=== PATIENT | male | born 1990 | race Caucasian/White ===

== ENCOUNTER 2023-05-10 00:01 | Emergency (ER) | payer MEDICAID, OTHER ==
[~2023-05-10] VITALS: Ht 175.3 cm; Wt 86.2 kg
[2023-05-10 00:26] VITALS: BP 101/64; PULSE 94; RESP 18; TEMP 98.3; O2SAT 99
[2023-05-10] MEDS ORDERED: KETOROLAC 30 MG/ML VIAL IM ONE (01:20)
--- NOTE | 2023-05-10 01:24 | NUR ---
PT TAKEN TO ER CHAIR
[2023-05-10] MEDS ORDERED: LID5T TP (01:44)
[2023-05-10] MEDS ORDERED: IBUP-2213 PO (01:55)
[2023-05-10] MEDS ORDERED: ONDA-188 SL (01:55)
[2023-05-10] MEDS ORDERED: PRED20TA5 PO (01:55)
[2023-05-10] MEDS ORDERED: SUD30 PO (01:55)
[2023-05-10 02:12] VITALS: BP 101/64; PULSE 94; RESP 18; TEMP 98.3; O2SAT 99
--- NOTE | 2023-05-10 02:13 | NUR ---
unable to do pain reassessment at 0224 for toradol 30mg due to pt is being discharge at this time
--- NOTE | 2023-05-10 02:13 | NUR ---
Patient discharged with v/s stable. Written and verbal after care instructions given and explained. New rx ibuprofen, zofran, prednisone, and sudafed. Patient verbalized understanding. Ambulatory with steady gait. All questions addressed prior to discharge. Advised to follow up with PMD.
== END 2023-05-10 02:13 | disposition home or self-care (01) ==
LOC: MED 00:01
DX: J06.9 Acute upper respiratory infection, unspecified (principal); J20.9 Acute bronchitis, unspecified; R11.10 Vomiting, unspecified; R51.9 Headache, unspecified; Z79.899 Other long term (current) drug therapy
CPT/HCPCS: 96372; 99283; J1885